=== PATIENT | female | born 1950 | race Caucasian/White ===

== ENCOUNTER → 2021-12-19 13:21 | Outpatient (CLI) | payer MEDICARE, SELFPAY ==
--- NOTE | ~2021-12-19 | MM_ITS ---
EXAMINATION: MM screening chanel BI w jonnie HISTORY: Screening TECHNIQUE: Craniocaudal and mediolateral oblique 3-D tomosynthesis images were obtained and synthetic 2-D images were generated. CAD analysis was submitted and interpreted. COMPARISON: No prior mammogram is available for comparison at this institution. BREAST PARENCHYMAL COMPOSITION: The breasts are almost entirely fatty. FINDINGS: There is no evidence of suspicious mass, calcification, or architectural distortion to sugg est malignancy in either breast. There has been no suspicious interval change. IMPRESSION: 1. No mammographic evidence of malignancy. 2. Recommend routine screening mammography in one year. BI-RADS Category 1: Negative Reviewed, dictated and finalized at location A.
--- NOTE | ~2021-12-19 | DEXA_ITS ---
Bone Density Report Name: TRISHA POLLOCK Age: 71 Sex: Female Ethnicity: White Date of : 1950 Indication: postmenopausal; screening for osteoporosis; height loss; prior fracture; asthma or emphysema; Referring Provider: Brain Vitale Study: Bone densitometry was performed. Exam Date: December 19, 2021 Accession number: [id number] Bone Density: Region BMD T-score Z-score Classification AP Spine (L1-L4) 0.835 -1.9 0.4 Osteopenia Femoral Neck (Left) 0.687 -1.5 0.6 Osteopenia Total Hip (Left) 0.861 -0.7 1.1 Normal Femoral Neck (Right) 0.697 -1.4 0.6 Osteopenia Total Hip (Right) 0.817 -1.0 0.7 Normal Total Hip Mean 0.839 -0.9 0.9 Normal World Health Organization criteria for BMD impression classify patients as: Normal (T-score at or above -1.0), Osteopenia (T-score between -1.0 and -2.5), or Osteoporosis (T-score at or below -2.5). 10-year Fracture Risk(1): Major Osteoporotic Fracture 17% Hip Fracture 2.7% Reported Risk Factors: [place] (), Neck BMD=0.687, BMI=25.9, previous fracture (1) FRAX(R) Version 3.08. Fracture probability calculated for an untreated patient. Fracture probability may be lower if the patient has received treatment. Clinical Information Provided by Patient: Has had a low trauma fracture Has used the following medications: Vitamin D Has the following medical conditions: Asthma or Emphysema Patient maximum height was 64 Menopause Age: 57 Does not regularly consume dairy products Drinks caffeinated beverages Onset of menses at age 11 Number of children 2 Impression: The patient has low bone mass, based on the Total Spine T-score. The patient has an estimated ten-year risk of hip fracture of 2.7% and an estimated ten-year risk of major fracture of 17%, based on the WHO FRAX algorithm. The patient has risk factors, including: previous fracture. Discussion: BONE DENSITY IS LOW AT ONE OR MORE SKELETAL SITES. This patient's lowest T-score is low at one or more skeletal sites. It meets the World Health Organization's (WHO) criteria for ?low bone mass? (T-score between -1.0 and -2.5). The patient's 10-year risk of fracture as calculated by FRAX is less than the threshold where pharmacological therapy is recommended by the National Osteoporosis Foundation (NOF). However, all treatment decisions require clinical judgment and consideration of individual patient factors, including patient preferences, comorbidities, previous drug use, risk factors not captured in the FRAX model (e.g., frailty, falls, vitamin D deficiency, increased bone turnover, interval significant decline in bone density) and possible under or overestimation of fracture risk by FRAX. The patient should follow a healthful lifestyle (good nutrition with adequate calcium and vitamin D, and appropriate weight-ajit
== END ==
PROVIDERS: PCP Family Medicine; Visit Provider Family Medicine
DX: Z12.31 Encounter for screening mammogram for malignant neoplasm of breast (principal); Z78.0 Asymptomatic menopausal state; M85.88 Other specified disorders of bone density and structure, other site; M85.852 Other specified disorders of bone density and structure, left thigh; M85.851 Other specified disorders of bone density and structure, right thigh
CPT/HCPCS: 77063; 77067; 77080

== ENCOUNTER → 2022-07-16 12:03 | Outpatient (CLI) | payer MEDICARE, SELFPAY ==
--- NOTE | ~2022-07-16 | XR_ITS ---
XR chest 2V DATE: 07/16/2022 12:21 INDICATION: Cough, shortness of breath, congestion for one week TECHNIQUE: 2 views COMPARISON: 01/30/2017 CT chest high resolution scan 09/02/2016 2 view chest FINDINGS: Chronic vertically oriented discoid scar, left lower lobe, stable since 08/23/2016. No pulmo nary infiltrate or consolidation, pleural effusion or pulmonary vascular congestion or pneumothorax. Normal heart size. No hilar or mediastinal enlargement. IMPRESSION: No active cardiopulmonary disease; chronic mild discoid scarring, left lower lobe Reviewed, dictated and finalized at location A. IMPRESSION: No active cardiopulmonary disease; chronic mild discoid scarring, l eft lower lobe
== END ==
PROVIDERS: PCP Family Medicine; Visit Provider Family Medicine
DX: R05.9 Cough, unspecified (principal); R06.02 Shortness of breath
CPT/HCPCS: 71046

== ENCOUNTER 2023-01-03 14:46 | Emergency (ER) | payer MEDICARE, SELFPAY ==
[2023-01-03] VITALS (8 sets, daily range): BP systolic 117–160; BP diastolic 56–94; PULSE 78–99; RESP 11–16; TEMP 36.7; O2SAT 97–100
--- NOTE | ~2023-01-03 | XR_ITS ---
Portable chest x-ray Comparison: 07/16/2022 Clinical History: Shortness of breath Findings: Lungs are clear, without focal consolidation or pleural effusion. Cardiomediastinal silho uette is stable. Bones and soft tissues are unremarkable. Impression: Normal chest. Reviewed, dictated and finalized at location . Impression: Normal chest.
--- NOTE | ~2023-01-03 | CT_ITS ---
Non-contrast Head CT History: Headache COMPARISON: 05/17/2016 Technique: Axial non-contrast imaging of the brain was performed. Dose reduction technique was used on this scan by utilizing automated exposure control and iterative reconstruction technique. The dose -length product (DLP) was 605.33 mGy-cm. Findings: There is no evidence of intracranial hemorrhage, mass lesion, or acute infarct. Brain par enchyma appears normal. The ventricles and subarachnoid spaces are normal in size. The calvarium ap pears normal. The visualized paranasal sinuses and mastoid air cells are clear. Impression: No significant abnormality seen. Reviewed, dictated and finalized at location . Impression: No significant abnormality seen.
[2023-01-03 15:11] LABS: Basophils Absolute Auto 0.1 K/mm3 (0.0-0.1); Eosinophils Absolute Auto 0.6 K/mm3 (0-0.3); Eosinophils Percent Auto 6.6 % (0-4.4); Hematocrit 40.9 % (37.0-47.0); Hemoglobin 13.1 g/dL (12.0-15.0); Immature Granulocyte Absolute 0.02 K/mm3 (0.00-0.031); Immature Granulocyte Percent A 0.2 % (0-0.5); Lymphocytes Absolute Auto 2.04 K/mm3 (0.9-3.2); Lymphocytes Percent Auto 23.6 % (18.3-44.2); Mean Corpuscular Hemoglobin 30.4 pg (26-34); Mean Corpuscular Volume 94.9 fl (80-100); Mean Platelet Volume 11.4 fl (7.4-10.4); Monocytes Absolute Auto 0.6 K/mm3 (0.1-0.6); Monocytes Percent Auto 7.2 % (2.6-8.5); Neutrophils Absolute Auto 5.3 K/mm3 (1.3-6.7); Neutrophils Percent Auto 61.4 % (45.5-73.1); Platelet Count Result 321 k/mm3 (150-375); Red Blood Count 4.31 M/mm3 (4.2-5.4); Red Cell Distribution Width 14.3 % (11.5-14.5); White Blood Count 8.6 K/mm3 (4.5-10.0)
[2023-01-03 15:21] LABS: Alanine Aminotransferase 34 U/L (6-35); Albumin Level 4.9 g/dL (3.5-5.1); Alkaline Phosphatase 125 U/L (38-126); Anion Gap 7 mmol/L (8-16); Aspartate Amino Transferase 28 U/L (14-36); Bilirubin,Total 0.5 mg/dL (0.2-1.3); Blood Urea Nitrogen 11 mg/dL (7-17); Calcium 9.6 mg/dL (8.4-10.2); Carbon Dioxide 30 mmol/L (22-30); Chloride 101 mmol/L (98-107); Estimated CRCL calculation 40 ml/min; Estimated Glomerular Filt Rate > 60; Glucose 106 mg/dL (65-110); Potassium 4.2 mmol/L (3.4-5.0); Sodium 138 mmol/L (137-145)
--- NOTE | 2023-01-03 18:14 | ED.GENADULT ---
HPI - General Adult General Chief complaint: Recheck/Abnormal Lab/Rx Stated complaint: elevated BP Time Seen by Provider: 01/03/23 17:15 History of Present Illness HPI narrative: 72-year-old female presented to the emergency department for evaluation of elevated blood pressure. Patient's blood pressure was elevated when she was getting outpatient labs drawn. Patient feels that her blood pressure has been elevated more frequently. Patient states she has had intermittent shortness of breath and headache. Upon arrival to the ED patient states that her blood pressure is improving. Patient denies any associated numbness or weakness with this. Patient denies any chest pain. Related Data Allergies Allergy/AdvReac Type Severity Reaction Status Date / Time kiwi Allergy Intermediate THROAT/MOUTH Verified 01/03/23 17:25 ITCHING & HIVES melon Allergy Intermediate THROAT/MOUTH Verified 01/03/23 17:25 ITCHING & HIVES Penicillins Allergy Unknown Unknown Verified 01/03/23 17:25 red dye Allergy Unknown Unknown Verified 01/03/23 17:25 Sulfa (Sulfonamide Allergy Unknown Unknown Verified 01/03/23 17:25 Antibiotics) Review of Systems Review of Systems: All systems reviewed & are unremarkable except as noted in HPI and below PMFSH Past Medical History Medical History Acquired hypothyroidism Allergic rhinitis Asthma Colon polyps GERD (gastroesophageal reflux disease) HLD (hyperlipidemia) Vitamin D deficiency Family History Family History Father Family history of coronary artery disease Asthma Family history of allergic disorder Family history of osteoarthritis Mother Family history of coronary artery disease Family history of malignant neoplasm Social History Social History Smoking status: Never smoker Second hand tobacco smoke exposure: No Alcohol intake: current Substance use: never Substance use type: does not use Living arrangements: with family Occupation/Education: retired Gender identity (if verbalized by the patient): Female Sexual Orientation (if Verbalized by the Patient): Straight or Heterosexual Exam Narrative: APPEARANCE: Well appearing, no pain, no distress, well-nourished. HEAD: normocephalic, atraumatic. EYES: PERRLA/EOMI, conjunctivae clear. NECK: Supple. No adenopathy, no masses. RESPIRATORY: Airway patent, respirations nonlabored. Clear to auscultation bilaterally, no rales, rhonchi, wheezing. CARDIOVASCULAR: Regular rate and rhythm without murmurs rubs or gallops. ABDOMINAL: Soft, nontender, nondistended, normal bowel sounds MUSCULOSKELETAL: Moves all extremities. Strength/ROM intact, No edema, No calf tenderness. NEURO: Alert. Cranial nerves II through XII intact. Grossly intact SKIN: Warm, dry. Normal Color Course Course Emergency Course: 72 female for evaluation of high blood pressure. Patient's blood pressure was 119/56 without any medical treatment. Patient is afebrile with no leukocytosis. Patient's CMP is within normal limits. Chest x-ray shows no acute cardiopulmonary malady and head CT shows no acute intracranial abnormality. Patient suspects that her increased blood pressure may be secondary to a change in her asthma medications. Patient was advised to have close follow-up with her physician to see if they want to change medication back. Patient was also advised to check her blood pressures twice daily and to keep a record for her primary care physician. Patient and family are comfortable with the plan for discharge and close follow-up. Patient was well-appearing at time of discharge. Vital Signs Vital signs: Vital Signs Temperature 98.1 F 01/03/23 14:49 Pulse Rate 89 01/03/23 14:49 Respiratory Rate 16 01/03/23 14:49 Blood Pressure 150/83 H 01/03/23 14:49 Pulse Oximetry
--- NOTE | 2023-01-03 18:17 | PC.NURSE ---
1801- Pt BP 119/56, Dr. Rodriguez notified, hydralazine held.
[2023-01-03 18:26] LABS: NT Pro B Type Natriuretic Pept 79 pg/mL (19.9-100)
== END 2023-01-03 19:13 | disposition home or self-care (01) ==
PROVIDERS: Emergency Provider Emergency Medicine; PCP Family Medicine
DX: I10 Essential (primary) hypertension (principal); R51.9 Headache, unspecified; E03.9 Hypothyroidism, unspecified; J45.909 Unspecified asthma, uncomplicated; E78.5 Hyperlipidemia, unspecified; R06.02 Shortness of breath
CPT/HCPCS: 36415; 70450; 71045; 80053; 83880; 85025; 99284

== ENCOUNTER 2023-01-28 09:25 | Outpatient (CLI) | payer MEDICARE, SELFPAY ==
--- NOTE | 2023-01-28 09:29 | EST_ITS ---
Patient Info Name: Eve Pink Age: 72 years : 1950 Gender: Female Ht: 63 in Wt: 145 lbs BSA: 1.72 m2 Exam Date: 01/28/2023 9:41 AM Exam Location: [facility] Stress Patient Status: Outpatient Admit Date: 01/28/2023 Staff Ordering Physician: Brain Vitale MD Attending Provider: Brain Vitale MD Exercise Technologist: Sharon Latham RDCS Exercise Physician: Kaleb Rodriguez DO Exam Type: CA stress test treadmill Study Info Indications R06.00 - Dyspnea, unspecified A treadmill exercise stress test was performed. Summary 1. 1. Negative Morris exercise stress test for ischemic ST changes by ECG criteria. 2. 2. Poor functional capacity, achieving 4.7 METs of workload. 3. 3. Baseline hypertension with hypertensive response to exercise. 4. 4. Rapid HR response to exercise. 5. 5. Appropriate HR recovery at 1 minute post exercise. 6. 6. No imaging with stress testing. 7. 7. Patient informed of the above results. Protocol: Morris Stress ECG Details Stage: REST Duration (min): 1 min : 59 sec Speed (mph): 0.0 Grade (%): 0 HR (bpm): 74 SBP (mmHg): 165 DBP (mmHg): 78 METS: --- Stage: REST Duration (min): 10 min : 17 sec Speed (mph): 0.0 Grade (%): 0 HR (bpm): 86 SBP (mmHg): 165 DBP (mmHg): 78 METS: --- Stage: STAGE 1 Duration (min): 1 min : 0 sec Speed (mph): 1.7 Grade (%): 10 HR (bpm): 117 SBP (mmHg): 165 DBP (mmHg): 78 METS: --- Stage: STAGE 1 Duration (min): 2 min : 0 sec Speed (mph): 1.7 Grade (%): 10 HR (bpm): 130 SBP (mmHg): 165 DBP (mmHg): 78 METS: --- Stage: STAGE 1 Duration (min): 3 min : 0 sec Speed (mph): 1.7 Grade (%): 10 HR (bpm): 134 SBP (mmHg): 233 DBP (mmHg): 89 METS: --- Stage: RECOVERY Duration (min): 0 min : 59 sec Speed (mph): 0.0 Grade (%): 0 HR (bpm): 116 SBP (mmHg): 214 DBP (mmHg): 86 METS: --- Stage: RECOVERY Duration (min): 1 min : 59 sec Speed (mph): 0.0 Grade (%): 0 HR (bpm): 100 SBP (mmHg): 214 DBP (mmHg): 86 METS: --- Stage: RECOVERY Duration (min): 2 min : 59 sec Speed (mph): 0.0 Grade (%): 0 HR (bpm): 94 SBP (mmHg): 176 DBP (mmHg): 73 METS: --- Stage: RECOVERY Duration (min): 3 min : 59 sec Speed (mph): 0.0 Grade (%): 0 HR (bpm): 91 SBP (mmHg): 176 DBP (mmHg): 73 METS: --- Stage: RECOVERY Duration (min): 4 min : 59 sec Speed (mph): 0.0 Grade (%): 0 HR (bpm): 80 SBP (mmHg): 148 DBP (mmHg): 76 METS: --- Stage: RECOVERY Duration (min): 5 min : 59 sec Speed (mph): 0.0 Grade (%): 0 HR (bpm): 80 SBP (mmHg): 148 DBP (mmHg): 76 METS: --- Stage: RECOVERY Duration (min): 6 min : 58 sec Speed (mph): 0.0 Grade (%): 0 HR (bpm): 78 SBP (mmHg): 136 DBP (mmHg): 76 METS: --- Rest HR: 86 bpm Peak HR: 135 bpm Rest Sys BP: 165 mmHg Peak Sys BP: 233 mmHg Max Pred HR: 146 bpm % Max Pred HR: 92 % Target HR: 124 bpm Max RPP: 31,455 bpm*mmHg
== END 2023-01-28 09:26 | disposition home or self-care (01) ==
LOC: ANHCARD 09:26
PROVIDERS: PCP Family Medicine; Visit Provider Family Medicine
DX: R06.00 Dyspnea, unspecified (principal); R55 Syncope and collapse; I10 Essential (primary) hypertension
CPT/HCPCS: 93017

== ENCOUNTER 2023-11-04 12:15 | Outpatient (CLI) | payer MEDICARE, SELFPAY ==
[2023-11-04 13:29] LABS: Influenza A QL RT-PCR Negative (Negative); Influenza B QL RT-PCR Negative (Negative); RSV RNA, RT-PCR Negative (Negative); SARS-CoV-2 RNA PCR Negative (Negative)
== END 2023-11-04 12:16 | disposition home or self-care (01) ==
LOC: ANHLAB 12:18
PROVIDERS: PCP Family Medicine; Visit Provider Physician Assistant
DX: R50.9 Fever, unspecified (principal); Z20.822 Contact with and (suspected) exposure to COVID-19
CPT/HCPCS: 87637

== ENCOUNTER 2023-11-07 16:30 | Emergency (ER) | payer MEDICARE, SELFPAY ==
[2023-11-07 16:39] VITALS: BP 133/79; PULSE 85; RESP 18; TEMP 36.4; O2SAT 100
--- NOTE | 2023-11-07 17:03 | ED.URI ---
HPI - URI/Sore Throat General Chief Complaint: Upper Respiratory Infection Stated Complaint: Chest Congestion Time Seen by Provider: 11/07/23 17:03 Source: patient, RN notes reviewed and old records reviewed Mode of arrival: ambulatory Limitations: no limitations History of Present Illness HPI Narrative: 73-year-old female presents to [facility] from home for complaint of chest congestion S2 days. Patient reports that 1 week ago she developed a sore throat. She called her doctor on Friday. Her PCP sent her to [facility] for labs. verses that she tested negative for RSV, influenza, and COVID. Patient then saw her manager plant on Friday and was placed on a Medrol Dosepak. Patient reports that chest question had her concerned that something else may be going on and wanted to have her lungs auscultated. patient endorses an allergy to sulfa and penicillins. Patient able tolerate fluids by mouth. Patient denies chest pain, shortness of breath, headache, fever, myalgias, or any other complaints at this time. Related Data Allergies Allergy/AdvReac Type Severity Reaction Status Date / Time kiwi Allergy Intermediate THROAT/MOUTH Verified 05/28/23 10:24 ITCHING & HIVES melon Allergy Intermediate THROAT/MOUTH Verified 05/28/23 10:24 ITCHING & HIVES Penicillins Allergy Mild Flushing Verified 05/28/23 10:24 red dye Allergy Unknown Unknown Verified 05/28/23 10:24 Sulfa (Sulfonamide Allergy Unknown Unknown Verified 05/28/23 10:24 Antibiotics) Review of Systems Review of Systems: All systems reviewed & are unremarkable except as noted in HPI and below Constitutional: Constitutional: Reports no additional constitutional complaints Eyes: Eyes: Reports no additional eye complaints ENT: Reports system reviewed and no additional complaints, except as documented Cardiovascular: Cardiovascular: Reports no additional cardiovascular complaints, Denies chest pain and Denies dyspnea Respiratory: Respiratory: Reports no additional respiratory complaints, Reports chest congestion, Denies cough and Denies dyspnea Musculoskeletal: Musculoskeletal: Reports no additional musculoskeletal complaints Neurologic: Reports system reviewed and no additional complaints, except as documented Psychiatric: Psychiatric: Reports no additional psychiatric complaints PMFSH Past Medical History Medical History Acquired hypothyroidism Allergic rhinitis Asthma Colon polyps GERD (gastroesophageal reflux disease) HLD (hyperlipidemia) Vitamin D deficiency Family History Family History Father Family history of coronary artery disease Asthma Family history of allergic disorder Family history of osteoarthritis Mother Family history of coronary artery disease Family history of malignant neoplasm Social History Social History Smoking status: Never smoker Second hand tobacco smoke exposure: No Alcohol intake: current Substance use: never Substance use type: does not use Living arrangements: with family Occupation/Education: retired Gender identity (if verbalized by the patient): Female Sexual Orientation (if Verbalized by the Patient): Straight or Heterosexual Comments At the time of my signature, I reviewed and agree with the nursing past medical, surgical, social, and family history. There is no relevant family history pertinent to the patient complaint. Exam Const: General: cooperative, healthy appearing, comfortable, no acute distress, alert and well nourished Nutritional Appearance: well nourished Orientation/consciousness: patient oriented x3 Limitations: no limitations HENMT: Head: normal to inspection Ears: external ears normal Face/Nose/Sinus: Normal external nose present, Normal nares present, normal facial exam, No erythema a
== END 2023-11-07 17:08 | disposition home or self-care (01) ==
PROVIDERS: Emergency Provider Nurse Practitioner Family; PCP Family Medicine
DX: J06.9 Acute upper respiratory infection, unspecified (principal); E03.9 Hypothyroidism, unspecified; J45.909 Unspecified asthma, uncomplicated; K21.9 Gastro-esophageal reflux disease without esophagitis; E78.5 Hyperlipidemia, unspecified
CPT/HCPCS: 99211; G0463

== ENCOUNTER 2024-02-17 16:28 | Emergency (ER) | payer MEDICARE, SELFPAY ==
--- NOTE | ~2024-02-17 | XR_ITS ---
EXAM: XR shoulder LT min 2V DATE: 02/17/2024 17:15 HISTORY: pain to shoulder and to upper arm . COMPARISON: None available. FINDINGS: Decreased mineralization. No fracture or dislocation. No lytic or blastic lesion. 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 No erosion or periosteal change. Soft tissues within nor mal limits. IMPRESSION: No acute osseous finding in the left shoulder. Reviewed, dictated and finalized at location K.
[2024-02-17 16:40] VITALS: BP 143/63; PULSE 74; RESP 16; TEMP 36.8; O2SAT 100
--- NOTE | 2024-02-17 16:46 | ED.EXTPRO ---
HPI - Extremity Problem General Chief complaint: Extremity Problem,Nontraumatic Stated complaint: Left Shoulder/Arm Pain Time Seen by Provider: 02/17/24 16:50 Source: patient, RN notes reviewed and old records reviewed Mode of arrival: ambulatory Limitations: no limitations History of Present Illness HPI Narrative: 73 year old female with complaints of left shoulder pain for with increase for the past 2 weeks. patient reports that she has been having some discomfort to her left shoulder for about a month with no known injury. Patient reports that pain is at the AC joint and to the achy to upper arm with some occasional tingling to her fingers of her left hand.Patient reports that she has been using her lap top to do some writing. She reports also that she has neen doing blood pressures on her left upper arm lately too which could be aggravating her biceps pain. Patient has been taking Ibuprofen for her discomfort. MD Complaint: other (left shoulder pain) Onset (ago): week(s) (increased symptoms 2 weeks) Pain Consistency: intermittent Severity scale (1-10): 4 Quality: aching Related Data Allergies Allergy/AdvReac Type Severity Reaction Status Date / Time kiwi Allergy Intermediate THROAT/MOUTH Verified 01/22/24 14:07 ITCHING & HIVES melon Allergy Intermediate THROAT/MOUTH Verified 01/22/24 14:07 ITCHING & HIVES Penicillins Allergy Mild Flushing Verified 01/22/24 14:07 red dye Allergy Unknown Unknown Verified 01/22/24 14:07 Sulfa (Sulfonamide Allergy Unknown Unknown Verified 01/22/24 14:07 Antibiotics) Review of Systems Review of Systems: CONSTITUTIONAL: Denies fever, chills, or sweats. EYES: Denies visual changes, redness, or discharge. ENT: Denies rhinorrhea, congestion, sore throat, or otalgia. CARDIOVASCULAR: Denies chest pain, palpitations, or edema. RESPIRATORY: Denies cough or dyspnea. GASTROINTESTINAL: Denies abdominal pain, nausea, vomiting, or diarrhea. GENITOURINARY: Denies dysuria or hematuria. SKIN: Denies rash or itching. MUSCULOSKELETAL: Denies back pain, positive for left shoulder pain , or myalgia. NEUROLOGIC: Denies headache, numbness, or weakness. PSYCHIATRIC: Denies anxiety or depression. All systems reviewed & are unremarkable except as noted in HPI and below PMFSH Past Medical History Medical History Acquired hypothyroidism Allergic rhinitis Asthma Colon polyps GERD (gastroesophageal reflux disease) HLD (hyperlipidemia) Vitamin D deficiency Family History Family History Father Family history of coronary artery disease Asthma Family history of allergic disorder Family history of osteoarthritis Mother Family history of coronary artery disease Family history of malignant neoplasm Social History Social History Smoking status: Never smoker Second hand tobacco smoke exposure: No Alcohol intake: current Substance use: never Substance use type: does not use Living arrangements: with family Occupation/Education: retired Gender identity (if verbalized by the patient): Female Sexual Orientation (if Verbalized by the Patient): Straight or Heterosexual Comments At time of signature, agree with nursing past medical, surgical, social and family history. There is no relevant family history pertinent to the presenting complaint Exam Narrative: GENERAL: Well-appearing, well-nourished, and in no acute distress. HEAD: Normocephalic, atraumatic. EYES: PERRLA and EOMI. ENT: Nares clear, no rhinorrhea or epistaxis. Mucous membranes moist. NECK: Supple.no lymphadenopathy CHEST: Clear to auscultation. No respiratory distress. HEART: Regular rate and rhythm. No murmur heard. Normal peripheral pulses. ABDOMEN: Soft, nontender, nondistended, normal active bowel sounds. EXTREMITIES: Normal range of motio
== END 2024-02-17 17:55 | disposition home or self-care (01) ==
PROVIDERS: Emergency Provider Registered Nurse; PCP Family Medicine
DX: M25.512 Pain in left shoulder (principal); E03.9 Hypothyroidism, unspecified; J45.909 Unspecified asthma, uncomplicated; K21.9 Gastro-esophageal reflux disease without esophagitis; E78.5 Hyperlipidemia, unspecified
CPT/HCPCS: 73030; 99213; G0463

== ENCOUNTER 2024-12-06 00:28 | Emergency (ER) | payer MEDICARE, SELFPAY ==
[2024-12-06 00:30] VITALS: BP 153/67; PULSE 81; RESP 15; TEMP 36.6; O2SAT 100
--- OUTSIDE RECORDS SUMMARY | 2024-12-06 00:31 | XMS_ITS | Clinical Summary ---
Author Organization [facility] Address [address] [place] [address] Care Team Providers Care Network Mgr Name Role Phone Brain Vitale MD Primary Care Provider [phone] Source Comments [facility],non-owned Affiliates and Associated Physician Practices is amultiple site organization consisting of ambulatory clinics and hospital sitesin [place], [place], [place] and [place]. This disclosure is being madepursuant to the Care Everywhere program and may not contain all information available regarding this patient. Last updated 18.[facility] [employer] Allergies Active Allergy Reactions Criticality Noted Date Comments Kiwi Extract 10/21/2016 Penicillins 10/21/2016 Red Dye 10/21/2016 Sulfa Drugs 10/21/2016 Citrullus Vulgaris 10/21/2016 Immunizations Name Administration Dates Next Due INFLUENZA VACCINE, HIGH-DOSE , QUADR. (FLUZONE HIGH-DOSE QUADRIVALENT; 65Y+), 0.7 ML (HD-IIV4) 10/21/2016 Social History Tobacco Use Types Packs/Day Years Used Date Smoking Tobacco: Never Assessed Sex and Gender Information Value Date Recorded Sex Assigned at Not on file Gender Identity Not on file Sexual Orientation Not on file Plan of Treatment Health Maintenance Due Date Last Done Comments BONE DENSITY TESTING 1950 MEDICARE AWV 12 MONTHS 1950 HEPATITIS C SCREENING 03/06/1966 DTAP/TDAP/TD VACCINES (1 - Tdap) 1967 PNEUMOCOCCAL VACCINE 50+ (1 of 1 - PCV) 1998 ZOSTER VACCINE (1 of 2) 1998 Respiratory Syncytial Virus (RSV) Vaccine Pt: or over 60 yrs (1 - 1-dose 75+ series) 2023 COVID-19 VACCINE ( - 2023-2 5 season) 2024 INFLUENZA VACCINE (#1) 2024 10/21/2016 DEPRESSION SCREENING 09/15/2024 HEPATITIS B VACCINE Aged Out No longe r eligible based on patient's age to complete this topic HIB VACCINE Aged Out No longer eligi ble based on patient's age to complete this topic HPV VACCINE Aged Out No longer eligi ble based on patient's age to complete this topic MENINGOCOCCAL (Group B) VACC INE SHARED DECISION-MAKING Aged Out No longer eligibl e based on patient's age to complete this topic MENINGOCOCCAL GROUPS A/C/Y/W VACCINE Aged Out No longer eligible b ased on patient's age to complete this topic Care Teams Network Mgr Relationship Specialty Start Date End Date Brain Vitale MD [address] [place] [address] PCP - General Family Medicine 10/21/16
--- OUTSIDE RECORDS SUMMARY | 2024-12-06 00:31 | XMS_ITS | Clinical Summary ---
Author Organization [facility] Address [address] Attn: Epic Prelude ADT [place] [id number] Care Team Providers Care Citizenship Instructor Name Role Phone Provider, Alexandra External Primary Care Provider Un available Social History Tobacco Use Types Packs/Day Years Used Date Smoking Tobacco: Never Alcohol Use Standard Drinks/Week Comments Yes 0 (1 standard drink = 0.6 oz pur e alcohol) Comments Unknown Sex and Gender Information Value Date Recorded Sex Assigned at Not on file Legal Sex Female 5:45 AM BAKER Gender Identity Not on file Sexual Orientation Not on file Last Filed Vital Signs Vital Sign Reading Time Taken Comments Blood Pressure 152/81 04/27/2016 1:31 AM CDT Pulse - - Temperature 36.7 C (98 F) 04/27/2016 1:40 AM CDT Respiratory Rate 18 04/27/2016 1:31 AM CDT Oxygen Saturation - - Inhaled Oxygen Concentration - - Weight 63.5 kg (140 lb) 04/26/2016 5:51 PM CDT Height 160 cm (5' 3 ) 04/26/2016 5:51 PM CDT Body Mass Index 24.8 04/26/2016 5:51 PM CDT Plan of Treatment Health Maintenance Due Date Last Done Comments DTAP/TDAP/TD VACCINES (1 - Tdap) 1967 PNEUMOCOCCAL VACCINE 50+ YEARS (1 of 1 - PCV) 03/10/19 98 ZOSTER VACCINE (1 of 2) 1998 OSTEOPOROSIS SCREENING 2013 RSV VACCINE (60+ or ) (1 - 1-dose 75+ series) 2023 INFLUENZA VACCINE (#1) 2024 Care Teams Citizenship Instructor Relationship Specialty Start Date End Date Provider, Alexandra Hitchcock PCP - General 04/25/14
--- OUTSIDE RECORDS SUMMARY | 2024-12-06 00:31 | XMS_ITS | Clinical Summary ---
Author Organization [facility] no Address [address] [place] [address] Phone Care Team Providers Care Manager Costing Name Role Phone Provider, Alexandra External Primary Care Provider Un available Allergies Active Allergy Reactions Criticality Noted Date Comments Penicillins Hives High 04/25/2014 Red Dye Anaphylaxis High 04/25/2014 Sulfa (Sulfonamide Antibiotics) Hives High 04/15 Medications aspirin (ECOTRIN EC) 81 mg Tablet, Delayed Release (E.C.) Take 81 mg by mouth daily. Active atenolol (TENORMIN) 25 mg tablet Take 12.5 mg by mouth daily. Active fluticasone (FLONASE) 50 mcg/spray [place], Suspension Administer 2 Sprays in each nostril daily. Active mometasone-form oterol (DULERA) 200-5 mcg/actuation inhaler Take 2 Puffs by inhalation 2 times daily. 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 Active atorvastatin (LIPITOR) 10 mg tablet Take 10 mg by mouth Daily LATE. Active FEXOFENADINE HCL (LUZMA ORAL) Take by mouth. Activ e albuterol 90 mcg/Actuation HFA inhaler Take 2 Puffs by inhalation every 6 hours as needed for Shortness of Breath. Active Family History Medical History Relation Name Comments Heart Disease Mother Relation Name Status Comments Mother Social History Tobacco Use Types Packs/Day Years Used Date Smoking Tobacco: Never Alcohol Use Standard Drinks/Week Comments No 0 (1 standard drink = 0.6 oz pur e alcohol) Comments No Sex and Gender Information Value Date Recorded Sex Assigned at Not on file Legal Sex Female 4:54 PM CDT Gender Identity Not on file Sexual Orientation Not on file Last Filed Vital Signs Vital Sign Reading Time Taken Comments Blood Pressure 119/51 04/25/2014 7:15 PM CDT Pulse - - Temperature 36.8 C (98.2 F) 04/25/2014 5:12 PM CDT Respiratory Rate 16 04/25/2014 5:12 PM CDT Oxygen Saturation 96% 04/25/2014 7:15 PM CDT Inhaled Oxygen Concentration - - Weight 64.4 kg (142 lb) 04/25/2014 5:12 PM CDT Height 161.3 cm (5' 3.5 ) 04/25/2014 5:12 PM CDT Body Mass Index 24.76 04/25/2014 5:12 PM CDT Plan of Treatment Health Maintenance Due Date Last Done Comments DTAP/TDAP/TD VACCINES (1 - Tdap) 1969 PNEUMOCOCCAL VACCINE 50+ YEARS (1 of 1 - PCV) 03/10/19 98 ZOSTER VACCINE (1 of 2) 1998 OSTEOPOROSIS SCREENING 2013 RSV VACCINE (60+ or ) (1 - 1-dose 75+ series) 2023 INFLUENZA VACCINE (#1) 2024 Insurance MEDICARE PART A AND B [facility] Care Teams Manager Costing Relationship Specialty Start Date End Date ProviderAlexandra PCP - General 04/25/14
--- OUTSIDE RECORDS SUMMARY | 2024-12-06 00:31 | XMS_ITS | Clinical Summary ---
Author Organization [facility] Address [address] [place] [address] Care Team Providers Care International Representative Name Role Phone Unavailable Primary Care Provider Unavailabl e Social History Tobacco Use Types Packs/Day Years Used Date Smoking Tobacco: Never Assessed Comments Unknown Sex and Gender Information Value Date Recorded Sex Assigned at Not on file Legal Sex Female 6:51 PM CDT Gender Identity Not on file Sexual Orientation Not on file Plan of Treatment Health Maintenance Due Date Last Done Comments Hepatitis C 1966 DTaP, Tdap and Td Vaccines ( 1 - Tdap) 1967 Zoster Vaccines (1 of 2) 1998 Dexa Scan (General) 2013 Pneumococcal Vaccine: 65+ Ye ars (1 of 1 - PCV) 2013 RSV Immunization or 60+ Years (1 - 1-dose 75+ series) 2023 COVID-19 Vaccine ( - 2023-2 5 season) 2024 Influenza Adult (#1) 2024 Meningococcal B Vaccine Aged Out No l onger eligible based on patient's age to complete this topic Meningococcal Vaccine Aged Out No dimitris mauricio eligible based on patient's age to complete this topic RSV Immunizations Under 20 Months Aged Out No longer eligible based on patient's age to complete this topic
--- OUTSIDE RECORDS SUMMARY | 2024-12-06 02:48 | XMS_ITS | Clinical Summary ---
Author Organization [facility] no Address [address] [address] Phone Care Team Providers Care Professor Of German Name Role Phone Provider, Alexandra External Primary [...] mouth daily. Active fluticasone (FLONASE) 50 mcg/spray [place], Suspension Administer 2 Sprays in each nostril daily. Active mometasone-form oterol (DULERA) 200-5 mcg/actuation inhaler Take 2 Puffs by inhalation 2 times daily. 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 Active atorvastatin (LIPITOR) 10 mg tablet Take [...] 2024 Insurance MEDICARE PART A AND B [facility] Care Teams Professor Of German Relationship Specialty Start Date End Date ProviderAlexandra PCP - General 04/25/14
--- OUTSIDE RECORDS SUMMARY | 2024-12-06 02:48 | XMS_ITS | Clinical Summary ---
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
--- OUTSIDE RECORDS SUMMARY | 2024-12-06 02:48 | XMS_ITS | Clinical Summary ---
Author Organization [facility] Address [address] [place] [address] Care Team Providers Care Pole Cutter Name Role Phone Unavailable Primary Care Provider [...]
--- OUTSIDE RECORDS SUMMARY | 2024-12-06 02:48 | XMS_ITS | Clinical Summary ---
Author Organization [facility] Address [address] [place] [address] Care Team Providers Care Angle Shearer Name Role Phone Brain Vitale MD Primary Care Provider [phone] Source Comments [facility],non-owned Affiliates and Associated Physician Practices is amultiple site organization consisting of ambulatory clinics and hospital sitesin [place], [place], [place] and [place]. This disclosure is being madepursuant to the Care Everywhere program and may not contain all information available regarding this patient. Last updated 18.[facility] [employer] Allergies Active Allergy Reactions Criticality Noted Date [...] age to complete this topic Care Teams Angle Shearer Relationship Specialty Start Date End Date Brain Vitale MD [address] [place] [address] PCP - General Family Medicine 10/21/16
[2024-12-06 03:06] VITALS: BP 123/57; PULSE 75; RESP 18; O2SAT 97
--- NOTE | 2024-12-06 03:13 | ED_ITS ---
HPI - Nausea/Vomiting/Diarrhea General Chief complaint: Nausea/Vomiting/Diarrhea Stated complaint: N/V Time Seen by Provider: 12/06/24 02:40 Source: patient and family Mode of arrival: ambulatory Limitations: no limitations History of Present Illness HPI Narrative: Patient presents with nausea and vomiting. She was trying to do her bowel prep for a colonoscopy scheduled for 12/06/24 at 9am with building guard deputy sheriff Dr Tate (meant to arrive at 7:30). Her ERICA of solid food was at 9am and then she switched to liquids as indicated. She took 4 Ducolax and has been drinking bottled tea with surgar, apple juice, etc. When she went to start the Miralax in [facility], she swallowed the first half recommended but began vomiting and could not continue. She got 4 mg Zofran IVP by EMS and is feeling better now. No fevers or chills but feels tremulous. Has had an issue with doing the bowel prep before. General low abdominal pain. Has started to have loose stools but not running clear. She denies dysuria or hematuria but has urianry frequency and urgency as well as feelign like she needs to use the bathroom again as soon as she is done.. Related Data Home Medications ?Medication ?Instructions ?Recorded ?Confirmed ?Last Taken ?Type aspirin 81 mg capsule 81 mg PO DAILY 11/25/24 11/25/24 11/25/24 History budesonide-formoterol HFA 160 2 puff inhalation Q12H 11/25/24 11/25/24 11/25/24 History mcg-4.5 mcg/actuation aerosol inhaler (Symbicort) Allergies Allergy/AdvReac Type Severity Reaction Status Date / Time kiwi Allergy Intermediate THROAT/MOUTH Verified 12/06/24 00:30 ITCHING & HIVES melon Allergy Intermediate THROAT/MOUTH Verified 12/06/24 00:30 ITCHING & HIVES red dye Allergy Intermediate Hives Verified 12/06/24 00:30 banana Allergy Mild Other Verified 12/06/24 00:30 Penicillins Allergy Mild Flushing Verified 12/06/24 00:30 Sulfa (Sulfonamide Allergy Mild flushing Verified 12/06/24 00:30 Antibiotics) PMFSH Past Medical History Medical History Colon polyps GERD (gastroesophageal reflux disease) Vitamin D deficiency Allergic rhinitis Asthma HLD (hyperlipidemia) Acquired hypothyroidism Family History Family History Father Family history of coronary artery disease Asthma Family history of allergic disorder Family history of osteoarthritis Mother Family history of coronary artery disease Family history of malignant neoplasm Social History Social History Smoking status: Never smoker Second hand tobacco smoke exposure: No Alcohol intake: current Drinks per week: 0 Alcohol use details: one a month Substance use: never Substance use type: does not use Living arrangements: alone Occupation/Education: retired Gender identity (if verbalized by the patient): Female Sexual Orientation (if Verbalized by the Patient): Straight or Heterosexual Spiritual care concerns: No Exam 2 Narrative: GENERAL: Well-appearing, well-nourished, and in no acute distress. HEAD: Normocephalic, atraumatic. EYES: Non injected, non icteric ENT: Nares clear, no rhinorrhea or epistaxis. NECK: Supple. CHEST: Speaking in full sentences. No respiratory distress. HEART: Regular rate and rhythm. . ABDOMEN: Soft, nondistended. Mild suprapubic tenderness to palpation. No rigidity/guarding. not peritoneal. EXTREMITIES: Normal range of motion. No lower extremity edema. SKIN: Warm, dry, no rash. NEURO: No focal deficits. Alert and oriented x3. PSYCH: Normal mood and affect. Course Vital Signs Vital signs: Vital Signs Temperature 98 F 12/06/24 00:30 Pulse Rate 81 12/06/24 00:30 Respiratory Rate 15 12/06/24 00:30 Blood Pressure 153/67 H 12/06/24 00:30 Pulse Oximetry 100 12/06/24 00:30 Oxygen Delivery Room Air 12/06/24 00:30 Temperature 98 F 12/06/24 00:30 Pulse Rate 75 12/06/24 03:06 Respiratory Rate 18 12/06/24 03:06 Blood Pressure 123/57 L 12/06/24 03:06 Pulse Oximetry 97 12/06/24 03:06 Oxygen Delivery Room Air 12/06/24 00:30 MDM - Nausea/Vomiting/Diarrhea MDM Narrative Medical decision making narrative: Patient presents with nausea and vomiting after trying to do bowel prep for a colonoscopy scheduled for 12/06/24. In the emergency department she is afebrile with vital signs notable for hypertension. Feeling better after receiving Zofran en route by EMS. Very Mild leukocytosis. Patient with only 6-10 white blood cells and 1+ leukocyte esterase. No bacteria. She does describe some urinary symptoms with urgency, frequency, and feeling of incomplete voiding. For this reason, and given mild suprapubic tenderness on palpation will treat for urinary tract infection. Allergic to sulfa and penicillins. Given first dose in ED with rest of course prescribed. She has successfully p.o. challenge. Stable for discharge. Also given Rx for Zofran ODT. Patient will call Dr Tate's office in the morning to cancel her colonoscopy and reschedule. Differential Diagnosis Differential diagnosis: Likely food poisoning, gastroenteritis, drug-induced nausea and vomiting, dehydration and other (electrolyte abnormaltieis) Lab Data Attestation: I reviewed the patient's lab results. Lab results narrative: No marked electrolyte abnormalities. Normal renal function. 12/06/24 03:30 12/06/24 03:30 Labs: Lab Results 12/06/24 Range/Units 03:30 WBC 10.3 H (4.5-10.0) K/mm3 RBC 4.03 L (4.2-5.4) M/mm3 Hgb 12.0 (12.0-15.0) g/dL Hct 37.0 (37.0-47.0) % MCV 91.8 (80-100) fl MCH 29.8 (26-34) pg MCHC 32.4 (32-36) g/dl RDW 13.9 (11.5-14.5) % Plt Count 288 (150-375) k/mm3 MPV 11.5 H (7.4-10.4) fl Immature Gran % (Auto) 0.3 (0-0.5) % Neut % (Auto) 77.7 H (45.5-73.1) % Lymph % (Auto) 15.6 L (18.3-44.2) % Chaves % (Auto) 5.0 (2.6-8.5) % Eos % (Auto) 0.9 (0-4.4) % Baso % (Auto) 0.5 (0.2-1.2) % Lymph # (Auto) 1.61 (0.9-3.2) K/mm3 Chaves # (Auto) 0.5 (0.1-0.6) K/mm3 Eos # (Auto) 0.1 (0-0.3) K/mm3 Baso # (Auto) 0.1 (0.0-0.1) K/mm3 Abs Immat Gran (auto) 0.03 (0.00-0.031) K/mm3 Absolute Neuts (auto) 8.0 H (1.3-6.7) K/mm3 Absolute Nucleated RBC 0.000 (0.0-0.012) K/mm3 Nucleated RBC % 0.0 (0.0-0.2) % Sodium 139 (137-145) mmol/L Potassium 4.3 (3.4-5.0) mmol/L Chloride 102 (98-107) mmol/L Carbon Dioxide 25 (22-30) mmol/L Anion Gap 12 (4-12) mmol/L BUN 12 (7-17) mg/dL Creatinine 0.88 (0.7-1.0) mg/dL Estim Creat Clear Calc 39 ml/min Estimated GFR > 60 (59 - ) Glucose 122 H (65-110) mg/dL Calcium 9.5 (8.4-10.2) mg/dL Magnesium 1.9 (1.6-2.3) mg/dL Total Bilirubin 0.8 (0.2-1.3) mg/dL AST 24 (14-36) U/L ALT 22 (6-35) U/L Alkaline Phosphatase 99 (38-126) U/L Total Protein 7.0 (6.3-8.2) g/dL Albumin 4.4 (3.5-5.1) g/dL Urine Color Yellow (Yellow) Urine Appearance Clear (Clear) Urine pH 6.0 (5.0-9.0) Ur Specific Mead 1.006 (1.001-1.035) Urine Protein Negative (Negative) mg/dL Urine Glucose (UA) Negative (Negative) mg/dL Urine Ketones Negative (Negative) mg/dL Ur Blood (Man) Negative (Negative) Urine Nitrate Negative (Negative) Urine Bilirubin Negative (Negative) Urine Urobilinogen 0.2 (<2.0) mg/dL Leukocyte Esterase Rfl 1+ H (Negative) GLENN/UL Urine RBC 0-2 (0-2) /hpf Urine WBC 6-10 H (0-3) /hpf Ur Squamous Epith Cells None seen (Few) /hpf Urine Bacteria None seen /hpf Urine Casts 0-2 Discharge Plan Discharge Clinical Impression: Abnormal urinalysis, Drug-induced nausea and vomiting Patient Disposition: Home, Self-Care Condition: Stable Instructions: Antibiotic Form, Acute Nausea and Vomiting (DC), Urinary Tract Infection in Older Adults (ED) Additional Instructions: If you continue to have nausea and vomiting you can use the oral disintegrating tablets of Zofran. Your urinalysis showed possible evidence of a urinary tract infection and given you were having some symptoms (urgency, frequency, feeling of incomplete voiding), reasonable to treat. You received your 1st dose of antibiotic in the emergency department with the rest of the course prescribed. Call your gastroenterology office to cancel and reschedule your colonoscopy and discuss alternative prep strategies. Patient Language: Greek Prescriptions: New ondansetron 4 mg tablet,disintegrating 4 mg PO Q8H PRN (Reason: nausea and vomiting) Qty: 7 0RF nitrofurantoin monohyd/m-cryst [Macrobid] 100 mg capsule 100 mg PO Q12H 3 Days Qty: 6 0RF Rx Instructions: must administer with a meal/food No Action famotidine 40 mg tablet 40 mg PO DAILY Qty: 90 2RF levothyroxine 50 mcg tablet 50 mcg PO DAILY Qty: 90 2RF montelukast [Singulair] 10 mg tablet 10 mg PO DAILY Qty: 90 1RF atorvastatin 10 mg tablet 10 mg PO DAILY Qty: 90 3RF budesonide-formoterol [Symbicort] 160-4.5 mcg/actuation HFA aerosol inhaler 2 puff INHALATION Q12H aspirin 81 mg capsule 81 mg PO DAILY Follow-up/Referrals: Brain Vitale MD [Primary Care Provider] - Ruben Tate MD [Physician] - Time of Disposition: 04:12
[2024-12-06] MEDS: ACETAMINOPHEN 500 MG TABLET 1000 MG PO (03:26)
[2024-12-06 03:36] LABS: Basophils Absolute Auto 0.1 K/mm3 (0.0-0.1); Basophils Percent Auto 0.5 % (0.2-1.2); Eosinophils Absolute Auto 0.1 K/mm3 (0-0.3); Eosinophils Percent Auto 0.9 % (0-4.4); Immature Granulocyte Absolute 0.03 K/mm3 (0.00-0.031); Immature Granulocyte Percent A 0.3 % (0-0.5); Lymphocytes Absolute Auto 1.61 K/mm3 (0.9-3.2); Lymphocytes Percent Auto 15.6 % (18.3-44.2); Mean Corpuscular HGB Conc 32.4 g/dl (32-36); Mean Corpuscular Hemoglobin 29.8 pg (26-34); Mean Corpuscular Volume 91.8 fl (80-100); Mean Platelet Volume 11.5 fl (7.4-10.4); Monocytes Absolute Auto 0.5 K/mm3 (0.1-0.6); Neutrophils Percent Auto 77.7 % (45.5-73.1); Platelet Count Result 288 k/mm3 (150-375); Red Blood Count 4.03 M/mm3 (4.2-5.4); Red Cell Distribution Width 13.9 % (11.5-14.5); White Blood Count 10.3 K/mm3 (4.5-10.0)
[2024-12-06 03:42] LABS: Add Urine Microscopic? YES; Appearance Urine Clear (Clear); Bacteria Urine None Seen /hpf; Bilirubin Urine Negative (Negative); Blood Urine Negative (Negative); Color Urine Yellow (Yellow); Glucose Urine UA Negative (Negative); Ketones Urine Negative (Negative); Leukocyte Esterase Ur 1+ LEU/UL (Negative); Nitrate Urine Negative (Negative); Non Pathogenic Casts 0-2; Protein Urine Negative (Negative); RBC Urine 0-2 /hpf (0-2); Specific Grav Ur 1.006 (1.001-1.035); Squamous Epithelial Cell Urine None Seen /hpf (Few); Urobilinogen Urine 0.2 mg/dL (<2.0)
[2024-12-06 03:47] LABS: Alanine Aminotransferase 22 U/L (6-35); Albumin Level 4.4 g/dL (3.5-5.1); Alkaline Phosphatase 99 U/L (38-126); Anion Gap 12 mmol/L (4-12); Aspartate Amino Transferase 24 U/L (14-36); Bilirubin,Total 0.8 mg/dL (0.2-1.3); Blood Urea Nitrogen 12 mg/dL (7-17); Calcium 9.5 mg/dL (8.4-10.2); Carbon Dioxide 25 mmol/L (22-30); Chloride 102 mmol/L (98-107); Estimated CRCL calculation 39 ml/min; Estimated Glomerular Filt Rate > 60; Glucose 122 mg/dL (65-110); Magnesium 1.9 mg/dL (1.6-2.3); Potassium 4.3 mmol/L (3.4-5.0); Sodium 139 mmol/L (137-145)
[2024-12-06] MEDS: NITROFURANTOIN MONOHYD MACROCR 100 MG CAP PO (04:20)
== END 2024-12-06 04:24 | disposition home or self-care (01) ==
PROVIDERS: Emergency Provider Student in an Organized Health Care Education/Training Program; PCP Family Medicine
DX: R11.2 Nausea with vomiting, unspecified (principal); R82.90 Unspecified abnormal findings in urine; Z79.82 Long term (current) use of aspirin; K21.9 Gastro-esophageal reflux disease without esophagitis; J45.909 Unspecified asthma, uncomplicated; E78.5 Hyperlipidemia, unspecified; E03.9 Hypothyroidism, unspecified
CPT/HCPCS: 36415; 80053; 81001; 83735; 85025; 87086; 99283; A9270

== ENCOUNTER 2025-01-31 14:27 | Outpatient (CLI) | payer MEDICARE, SELFPAY ==
--- NOTE | ~2025-01-31 | DEXA_ITS ---
Bone Density Report Name: TRISHA POLLOCK Age: 74 Sex: Female Ethnicity: White Date of : 1950 Indication: postmenopausal; screening for osteoporosis; height loss; inflammatory bowel disease; asthma or emphysema; Referring Provider: MASSIEL BURNETT Study: Bone densitometry was performed. Exam Date: January 31, 2025 Accession number: [id number] Bone Density: Region BMD T-score Z-score Classification AP Spine(L1-L4) 0.902 -1.3 1.2 Osteopenia Femoral Neck (Left) 0.674 -1.6 0.6 Osteopenia Total Hip (Left) 0.887 -0.5 1.4 Normal Femoral Neck (Right) 0.648 -1.8 0.4 Osteopenia Total Hip (Right) 0.871 -0.6 1.3 Normal Total Hip Mean 0.879 -0.6 1.4 Normal World Health Organization criteria for BMD impression classify patients as: Normal (T-score at or above -1.0), Osteopenia (T-score between -1.0 and -2.5), or Osteoporosis (T-score at or below -2.5). 10-year Fracture Risk(1): Major Osteoporotic Fracture 13% Hip Fracture 3.1% Reported Risk Factors: [place] (), Neck BMD=0.648, BMI=25.9 (1) FRAX(R) Version 3.08. Fracture probability calculated for an untreated patient. Fracture probability may be lower if the patient has received treatment. Clinical Information Provided by Patient: Has used the following medications: Vitamin D Has the following medical conditions: Asthma or Emphysema, Inflammatory bowel diseases Patient maximum height was 64.0 Menopause Age: 57 No regular weight bearing exercise Does not regularly consume dairy products Drinks caffeinated beverages Onset of menses at age 11 Number of children 2 Impression: The patient has low bone mass, based on the Right Femoral Neck T-score. The patient has an estimated ten-year risk of hip fracture of 3.1% and an estimated ten-year risk of major fracture of 13%, based on the WHO FRAX algorithm. Discussion: BONE DENSITY IS LOW AT ONE OR MORE SKELETAL SITES. THE PATIENT'S BMD AND CLINICAL RISK FACTORS CONTRIBUTE TO THIS PATIENT'S INCREASED RISK OF FRACTURE. This patient's lowest T-score is low at one or more skeletal sites. It meets the World Health Organization's (WHO) criteria for “low bone mass” (T-score between -1.0 and -2.5). The patient's 10-year risk of hip fracture as calculated by FRAX exceeds the threshold where pharmacological therapy is recommended by the National Osteoporosis Foundation (NOF). However, all treatment decisions require clinical judgment and consideration of individual patient factors, including patient preferences, comorbidities, previous drug use, risk factors not captured in the FRAX model (e.g., frailty, falls, vitamin D deficiency, increased bone turnover, interval significant decline in bone density) and possible under or overestimation of fracture risk by FRAX. The patient should follow a healthful lifestyle (good nutrition with adequate calcium and vitamin D, and appropriate weight-bearing exercise). Follow-Up: Consider a repeat BMD and Vertebral Fracture Assessment (VFA) exam in 2 years or sooner if medically necessary, to reassess this patient's status. Reported by: FAIZA on 01/31/2025 3:00:00 PM. Reviewed, dictated and finalized at location A.
--- OUTSIDE RECORDS SUMMARY | 2025-01-31 14:30 | XMS_ITS | Clinical Summary ---
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
--- OUTSIDE RECORDS SUMMARY | 2025-01-31 14:30 | XMS_ITS | Clinical Summary ---
Author Organization [facility] Address [address] [address] Care Team Providers Care Low Altitude Air Defense Gunner Name Role Phone Brain Vitale MD Primary Care Provider [phone] [facility],non-owned Affiliates and Associated Physician Practices is amultiple site organization consisting of ambulatory clinics and hospital sitesin [place], [place], [place] and [place]. This disclosure is being madepursuant to the Care Everywhere program and may not contain all information available regarding this patient. Last updated 18.[facility] [place] Allergies Active Allergy Reactions Criticality Noted Date Comments Kiwi Extract 10/21/2016 Penicillins 10/21/2016 Red Dye 10/21/2016 Sulfa Drugs 10/21/2016 Citrullus Vulgaris 10/21/2016 Immunizations Immunization Administration Dates Next Due INFLUENZA VACCINE, HIGH-DOSE , QUADR. 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 Gender Identity Not on file Sexual Orientation Not on file Plan of Treatment Health Maintenance Due Date Last Done Comments BONE DENSITY TESTING 1950 HEPATITIS C SCREENING 03/06/1966 DTAP/TDAP/TD VACCINES (1 - Tdap) 1967 PNEUMOCOCCAL VACCINE 50+ (1 of 1 - PCV) 1998 ZOSTER VACCINE (1 of 2) 1998 Respiratory Syncytial Virus (RSV) Vaccine Pt: or over 60 yrs (1 - 1-dose 75+ series) 2023 COVID-19 VACCINE ( - 2023-2 5 season) 2024 DEPRESSION SCREENING 09/15/2024 INFLUENZA VACCINE (Season Ended) 2025 10/21/19 17 HEPATITIS B VACCINE Aged Out No longe [...] on patient's age to complete this topic Insurance MEDICARE MEDICARE Care Teams Low Altitude Air Defense Gunner Relationship Specialty Start Date End Date Brain Vitale MD [address] [place] [address] PCP - General Family Medicine 10/21/16
--- OUTSIDE RECORDS SUMMARY | 2025-01-31 14:30 | XMS_ITS | Clinical Summary ---
Author Organization [facility] no Address [address] [place] [address] Phone Care Team Providers Care Blueprint Processor Name Role Phone Provider, Alexandra External Primary [...] mouth daily. Active fluticasone (FLONASE) 50 mcg/spray [place], Suspension Administer 2 Sprays in each nostril daily. Active mometasone-form oterol (DULERA) 200-5 mcg/actuation inhaler Take 2 Puffs by inhalation 2 times daily. 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 Active atorvastatin (LIPITOR) 10 mg tablet Take [...] 2024 Insurance MEDICARE PART A AND B [facility] Care Teams Blueprint Processor Relationship Specialty Start Date End Date ProviderAlexandra PCP - General 04/25/14
--- OUTSIDE RECORDS SUMMARY | 2025-01-31 14:30 | XMS_ITS | Clinical Summary ---
Author Organization [facility] Address [address] [place] [address] Care Team Providers Care Service Advisor Name Role Phone Unavailable Primary Care Provider [...] Td Vaccines ( 1 - Tdap) 1967 Pneumococcal Vaccine: 50+ Ye ars (1 of 1 - PCV) 1998 Zoster Vaccines (1 of 2) 1998 Dexa Scan (General) 2013 RSV Immunization or 60+ Years (1 - 1-dose 75+ series) 2023 COVID-19 Vaccine (2023-2 5 season) 2024 Meningococcal B Vaccine Aged Out No l onger eligible based on patient's age to complete this topic Meningococcal Vaccine Aged Out No dimitris mauricio eligible based on patient's age to complete this topic RSV Immunizations Under 20 Months Aged Out No longer eligible based on patient's age to complete this topic
== END 2025-01-31 14:28 | disposition home or self-care (01) ==
LOC: ANHIMG 14:29
PROVIDERS: PCP Family Medicine; Visit Provider Family Medicine
DX: M85.89 Other specified disorders of bone density and structure, multiple sites (principal); Z78.0 Asymptomatic menopausal state; Z13.820 Encounter for screening for osteoporosis
CPT/HCPCS: 77080

== ENCOUNTER 2025-06-18 12:22 | Emergency (ER) | payer MEDICARE, SELFPAY ==
--- NOTE | 2025-06-18 12:25 | ED_ITS ---
HPI - Extremity Problem General Chief complaint: Extremity Injury, Lower Stated complaint: R HIP PAIN/LEG TINGLING Time Seen by Provider: 06/18/25 12:25 Source: patient Mode of arrival: ambulatory Limitations: no limitations History of Present Illness HPI Narrative: Eve is a 75-year-old female patient presenting to the clinic today with complaints of right hip pain/leg tingling for several weeks. She reports pain got worse on Friday of this past week. 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 Sitting aggravates her symptoms. She does not have any pain with walking/bearing weight. No recent injury to the hip. Denies any urinary symptoms. Denies any back pain. No saddle anesthesia or loss of bowel or bladder. Rates pain currently a /10. Has been taking ibuprofen and stretching Related Data Home Medications ?Medication ?Instructions ?Recorded ?Confirmed ?Last Taken ?Type aspirin 81 mg capsule 81 mg PO DAILY 11/25/2401/0711/25/24 History budesonide-formoterol HFA 160 2 puff inhalation Q12H 0 11/25/24 06/18/25 11/25/24 History mcg-4.5 mcg/actuation aerosol inhaler (Symbicort) Allergies Allergy/AdvReac Type Severity Reaction Status Date / Time kiwi Allergy Intermediate THROAT/MOUTH Verified 06/18/25 12:36 ITCHING & HIVES melon Allergy Intermediate THROAT/MOUTH Verified 06/18/25 12:36 ITCHING & HIVES red dye Allergy Intermediate Hives Verified 06/18/25 12:36 banana Allergy Mild Other Verified 06/18/25 12:36 Penicillins Allergy Mild Flushing Verified 06/18/25 12:36 Sulfa (Sulfonamide Allergy Mild flushing Verified 06/18/25 12:36 Antibiotics) Review of Systems Review of Systems: Pertinent positives per HPI. Patient denies any fever, chills, rash, headache, visual changes, dizziness, cough, runny nose, sore throat, shortness of breath, chest pain, palpitations, nausea, vomiting, diarrhea, constipation, abdominal pain, or any urinary issues. PMFSH Past Medical History Medical History Colon polyps GERD (gastroesophageal reflux disease) Vitamin D deficiency Allergic rhinitis Asthma HLD (hyperlipidemia) Acquired hypothyroidism Family History Family History Father Family history of coronary artery disease Asthma Family history of allergic disorder Family history of osteoarthritis Mother Family history of coronary artery disease Family history of malignant neoplasm Social History Social History Smoking status: Never smoker Second hand tobacco smoke exposure: No Alcohol intake: current Drinks per week: 0 Alcohol use details: one a month Substance use: never Substance use type: does not use Living arrangements: alone Occupation/Education: retired Gender identity (if verbalized by the patient): Female Sexual Orientation (if Verbalized by the Patient): Straight or Heterosexual Spiritual care concerns: No Comments At the time of my signature, I reviewed and agree with the nursing past medical, surgical, social, and family history. There is no relevant family history pertinent to the patient complaint. Exam Narrative: General: Well-developed, well nourished, in no apparent distress Head: Normocephalic, atraumatic. Cardio: Regular rate and rhythm, s1 and s2 normal, no murmur appreciated. Resp: Clear to auscultation bilaterally, no rhonchi, rales, wheezing or rubs. Musculoskeletal: No deformity, tender to palpation over the right SI joint and over the right lower gluteal/ischium, pain with numbness and tingling radiating down the posterior buttocks around to the top of the thigh and radiating down her leg, reports numbness and tingling in her toes, grossly normal range of motion, muscle strength strong and equal, peripheral pulse strong, no edema, no cyanosis, normal gait and station Course Course Emergency Course: Portions of this record may have been created with voice recognition software. Level of Care: Express Care Visit Vital Signs Vital signs: Vital Signs Temperature 36.6 C 06/18/25 12:32 Pulse Rate 83 06/18/25 12:32 Respiratory Rate 16 06/18/25 12:32 Blood Pressure 153/86 H 06/18/25 12:32 Pulse Oximetry 83 L 06/18/25 12:32 Temperature 36.6 C 06/18/25 12:32 Pulse Rate 83 06/18/25 12:32 Respiratory Rate 16 06/18/25 12:32 Blood Pressure 153/86 H 06/18/25 12:32 Pulse Oximetry 83 L 06/18/25 12:32 Vital signs reviewed MDM - Extremity (Nontraumatic) MDM Narrative Medical decision making narrative: At the time of visit patient is resting comfortably on the exam table. Patient appears to be nontoxic. Complaints of right hip pain/leg tingling for several weeks. She reports pain got worse on Friday of this past week. 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 Sitting aggravates her symptoms. She does not have any pain with walking/bearing weight. No recent injury to the hip. Denies any urinary symptoms. Denies any back pain. No saddle anesthesia or loss of bowel or bladder. Rates pain currently a 3/10. Has been taking ibuprofen and stretching. On exam patient has tenderness to palpation over the right SI joint and over the right lower gluteal/ischium, pain with numbness and tingling radiating down the posterior buttocks around to the top of the thigh and radiating down her leg, reports numbness and tingling in her toes, grossly normal range of motion, muscle strength strong and equal, peripheral pulse strong, no edema, no cyanosis, normal gait and station Plan: I suspect patient has SI joint dysfunction with right-sided sciatica pain. Prescription for Medrol Dosepak was sent to the pharmacy. Supportive measures were discussed with the patient and they voiced understanding discharge instructions and agrees to treatment plan. Return precautions reviewed Differential Diagnosis Differential diagnosis: Likely gout and other (Sciatica, SI joint dysfunction, back pain with radiculopathy) Discharge Plan Discharge Clinical Impression: Pain of right sacroiliac joint, Sciatica of right side Patient Disposition: Home Condition: Stable Instructions: Antibiotic Form, Sciatica (ED) Additional Instructions: Take any prescription medication only as prescribed-Medrol Dosepak Be mindful of sedation precautions given to you if taking a muscle relaxer. May use heat or ice to the affected area Consider massage or chiropractor adjustment if this was discussed with provider May use blue emu, lidocaine patches, or asper cream to affected area- do not apply heat or ice directly over cream- can cause burn. Complete appropriate sciatica stretching exercises. Follow up with your PCP in 3-5 days if symptom persist. Patient Language: Vietnamese Prescriptions: New methylprednisolone [Medrol (Ervin)] 4 mg tablets,dose pack See Rx Instructions PO .COMPLEX Qty: 21 0RF Rx Instructions: orally per package directions No Action atorvastatin 10 mg tablet 10 mg PO DAILY Qty: 90 3RF famotidine 40 mg tablet 40 mg PO DAILY Qty: 90 2RF montelukast [Singulair] 10 mg tablet 10 mg PO DAILY Qty: 90 1RF levothyroxine 50 mcg tablet 50 mcg PO DAILY Qty: 90 0RF budesonide-formoterol [Symbicort] 160-4.5 mcg/actuation HFA aerosol inhaler 2 puff INHALATION Q12H aspirin 81 mg capsule 81 mg PO DAILY Follow-up/Referrals: Brain Vitale MD [Primary Care Provider, [facility]] Time of Disposition: 12:40 Quality NIHSS Nursing Documentation ED NIHSS nursing documentation: reviewed/agree
[2025-06-18 12:32] VITALS: BP 153/86; PULSE 83; RESP 16; TEMP 36.6; O2SAT 83
== END 2025-06-18 12:48 | disposition home or self-care (01) ==
PROVIDERS: Emergency Provider Nurse Practitioner Family; PCP Family Medicine
DX: M53.3 Sacrococcygeal disorders, not elsewhere classified (principal); M54.31 Sciatica, right side; K21.9 Gastro-esophageal reflux disease without esophagitis; E03.9 Hypothyroidism, unspecified; E78.5 Hyperlipidemia, unspecified; J45.909 Unspecified asthma, uncomplicated; Z79.82 Long term (current) use of aspirin
CPT/HCPCS: 99213; G0463

== ENCOUNTER 2025-07-19 14:56 | Outpatient (CLI) | payer MEDICARE, SELFPAY ==
--- NOTE | ~2025-07-19 | US_ITS ---
EXAMINATION: US carotid duplex BI DATE: 07/19/2025 15:53 INDICATION: Carotid stenosis. Pulsatile tinnitus. TECHNIQUE: Grayscale, color Doppler, and pulsed Doppler images of the cervical carotid arteries were obtained. The degree of vessel stenosis is placed in one of the following categories: normal, <50%, 50-69%, >=70% but less than near- occlusion, near-occlusion, or total occlusion. Note that percent stenosis relative to normal distal artery lumen diameter is indirectly measured from velocity measurements as described by Alan, et al. Radiology 2003; 229:340-346. Notes: Normal: Peak systolic velocity <125 centimeters/sec and no plaque <50%. Peak systolic velocity <125 (EDV <40; ICA/CCA PSV ratio <2.0; used these factors only a tandem lesions or low cardiac output or contralateral disease) 50-69 %: PSV 125-230 (EDV 40-100; ratio 2-4) >= 70% but less than near occlusion: PSV greater than 230 (EDV > 100; ratio> 4.0) Near Occlusion: PSV that is variable; markedly narrowed lumen Occlusion: Absent flow on color/spectral Doppler and no lumen on steinberg scale. COMPARISON: None. FINDINGS: RIGHT: The right common carotid artery (CCA) peak systolic velocity (PSV) is 100 cm/s. The right internal carotid artery (ICA) PSV is 98 cm/s. The right ICA end- diastolic velocity (EDV) is 27 cm/s. The right ICA/CCA PSV ratio is 1.0. The external carotid artery (ECA) PSV is 106 cm/s. There is antegrade flow in the right vertebral artery. LEFT: The left CCA PSV is 91 cm/s. The left ICA PSV is 113 cm/s. The left ICA EDV is 33 cm/s. The left ICA/CCA PSV ratio is 1.2. The ECA PSV is 78 cm/s. There is antegrade flow in the left vertebral artery. IMPRESSION: 1. Less than 50% stenosis in the right internal carotid artery by sonographic criteria. 2. Less than 50% stenosis in the left internal carotid artery by sonographic criteria. Reviewed, dictated and finalized at location O. CTION MEDICINE PHYSICIAN IMPRESSION: 1. Less than 50% stenosis in the right internal carotid artery by sonographic bela tran. 2. Less than 50% stenosis in the left internal carotid artery by sonographic samy cotter.
--- NOTE | ~2025-07-19 | XR_ITS ---
XR lumbar spine 2-3V Indication: M54.50 - Low back pain, unspecified Comparison: None Findings: The vertebral heights are intact. No fracture or subluxation. The disc heights are intact. Soft tissues unremarkable Impression: No acute abnormality. Reviewed, dictated and finalized at location P. AND LINK KNITTING MACHINE OPERATOR Impression: No acute abnormality.
--- OUTSIDE RECORDS SUMMARY | 2025-07-19 16:27 | XMS_ITS | Clinical Summary ---
Author Organization [facility] n Address [address] [place] [address] Phone Care Team Providers Care Cnmt Name Role Phone Unavailable Primary Care Provider Unavailabl e Allergies Active Allergy Reactions Criticality Noted Date Comments Penicillins Anaphylaxis High 05/01/2015 Red Dye Anaphylaxis High 05/01/2015 Sulfa (Sulfonamide Antibiotics) Anaphylaxis High Medications albuterol sulfate 90 mcg inhaler Take 2 Puffs by inhalation every 4 hours as needed for Shortness of Breath. 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 Active atorvastatin (LIPITOR) 10 mg tablet Take 10 mg by mouth Daily LATE. Active aspirin (ECOTRIN EC) 81 mg Tablet, Delayed Release (E.C.) Take 81 mg by mouth daily. Active ondansetron (ZOFRAN ODT) 4 mg Tablet, Rapid Dissolve Place 1 Tab (4 mg) under tongue every 8 hours as needed for Nausea/Emesis. 10 Tab 0 5 Active Social History Tobacco Use Types Packs/Day Years Used Date Smoking Tobacco: Never Alcohol Use Standard Drinks/Week Comments Yes 0 (1 standard drink = 0.6 oz pur e alcohol) Comments No Sex and Gender Information Value Date Recorded Sex Assigned at Not on file Legal Sex Female 5:03 AM CDT Gender Identity Not on file Sexual Orientation Not on file Last Filed Vital Signs Vital Sign Reading Time Taken Comments Blood Pressure 152/81 04/27/2016 1:31 AM CDT Pulse - - Temperature 36.7 C (98 F) 04/27/2016 1:40 AM CDT Respiratory Rate 18 04/27/2016 1:31 AM CDT Oxygen Saturation 99% 04/27/2016 1:31 AM CDT Inhaled Oxygen Concentration - - Weight 63.5 kg (140 lb) 04/26/2016 5:51 PM CDT Height 160 cm (5' 3) 04/26/2016 5:51 PM CDT Body Mass Index 24.8 04/26/2016 5:51 PM CDT Plan of Treatment Health Maintenance Due Date Last Done Comments DTAP/TDAP/TD VACCINES (1 - Tdap) 1967 PNEUMOCOCCAL VACCINE 50+ YEARS (1 of 1 - PCV) 03/10/19 98 ZOSTER VACCINE (1 of 2) 1998 OSTEOPOROSIS SCREENING 2013 RSV VACCINE (60+ or ) (1 - 1-dose 75+ series) 2023 INFLUENZA VACCINE (#1) 2025 Insurance MEDICARE PART A AND B [facility] MEDICARE PART A AND B [facility]
--- OUTSIDE RECORDS SUMMARY | 2025-07-19 16:27 | XMS_ITS | Clinical Summary ---
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
--- OUTSIDE RECORDS SUMMARY | 2025-07-19 16:27 | XMS_ITS | Clinical Summary ---
Author Organization [facility] Address [address] [place] [id number] Care Team Providers Care Dredge Deckhand Name Role Phone Unavailable Primary Care Provider [...] 75+ series) 2023 COVID-19 Vaccine ( - 2024-2 6 season) 2025 Influenza Adult (#1) 2025 Hepatitis A Vaccines Aged Out No long er eligible based on patient's age to complete this topic Meningococcal B Vaccine Aged Out No l onger eligible based on patient's age to complete this topic Meningococcal Vaccine Aged Out No dimitris mauricio eligible based on patient's age to complete this topic RSV Immunizations Under 20 Months Aged Out No longer eligible based on patient's age to complete this topic
--- OUTSIDE RECORDS SUMMARY | 2025-07-19 16:27 | XMS_ITS | Clinical Summary ---
Author Organization [facility] no Address [address] [place] [address] Phone Care Team Providers Care Deputy Sheriff Court Services Name Role Phone Provider, Alexandra External Primary [...] mouth daily. Active fluticasone (FLONASE) 50 mcg/spray Blain, Suspension Administer 2 Sprays in each nostril daily. Active mometasone-form oterol (DULERA) 200-5 mcg/actuation inhaler Take 2 Puffs by inhalation 2 times daily. 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 Active atorvastatin (LIPITOR) 10 mg tablet Take [...] 5:12 PM CDT Height 161.3 cm (5' 3.5) 04/25/2014 5:12 PM CDT Body Mass Index [...] 2025 Insurance MEDICARE PART A AND B [facility] Care Teams Deputy Sheriff [address] Services Relationship Specialty Start Date End Date ProviderAlexandra PCP - General 04/25/14
--- OUTSIDE RECORDS SUMMARY | 2025-07-19 16:27 | XMS_ITS | Clinical Summary ---
Author Organization [facility] Address [address] [place] [address] Care Team Providers Care Store Hand Name Role Phone Brain Vitale MD Primary Care Provider [phone] Source Comments [facility],non-owned Affiliates and Associated Physician Practices is amultiple site organization consisting of ambulatory clinics and hospital sitesin [place], [place], [place] and [place]. This disclosure is being madepursuant to the Care Everywhere program and may not contain all information available regarding this patient. 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
== END 2025-07-19 14:57 | disposition home or self-care (01) ==
LOC: ANHIMG 15:00
PROVIDERS: PCP Family Medicine; Visit Provider Physician Assistant
DX: I65.23 Occlusion and stenosis of bilateral carotid arteries (principal); M54.50 Low back pain, unspecified; R09.89 Other specified symptoms and signs involving the circulatory and respiratory systems; H93.A9 Pulsatile tinnitus, unspecified ear
CPT/HCPCS: 72100; 93880

== ENCOUNTER 2025-07-31 15:15 | Emergency (ER) | payer MEDICARE, SELFPAY ==
--- NOTE | 2025-07-31 15:18 | ED_ITS ---
HPI - URI/Sore Throat General Chief Complaint: Upper Respiratory Infection Stated Complaint: Cough/Congestion/Sore Throat Time Seen by Provider: 07/31/25 15:17 Source: patient Mode of arrival: ambulatory Limitations: no limitations History of Present Illness HPI Narrative: Eve is a 75 year old female patient presenting to the clinic today with c/o cough, congestion, and sore throat x 1 week. She reports no fever,chills, or body aches. Coughing up clear phlegm. History of COPD/asthma. Does use albuterol inhaler and Symbicort daily. Does feel some increased shortness of breath. Related Data Home Medications ?Medication ?Instructions ?Recorded ?Confirmed ?Last Taken ?Type aspirin 81 mg capsule 81 mg PO DAILY 11/25/2407/1611/25/24 History budesonide-formoterol HFA 160 2 puff inhalation Q12H 0 11/25/24 07/28/25 11/25/24 History mcg-4.5 mcg/actuation aerosol inhaler (Symbicort) Allergies Allergy/AdvReac Type Severity Reaction Status Date / Time kiwi Allergy Intermediate THROAT/MOUTH Verified 07/28/25 11:33 ITCHING & HIVES melon Allergy Intermediate THROAT/MOUTH Verified 07/28/25 11:33 ITCHING & HIVES red dye Allergy Intermediate Hives Verified 07/28/25 11:33 banana Allergy Mild Other Verified 07/28/25 11:33 Penicillins Allergy Mild Flushing Verified 07/28/25 11:33 Sulfa (Sulfonamide Allergy Mild flushing Verified 07/28/25 11:33 Antibiotics) Review of Systems Review of Systems: Pertinent positives per HPI. Patient denies any fever, chills, rash, headache, visual changes, dizziness, chest pain, palpitations, nausea, vomiting, diarrhea, constipation, abdominal pain, or any urinary issues. [facility] Past Medical History Medical History Abnormal auditory perception of right ear Hearing loss Colon polyps GERD (gastroesophageal reflux disease) Vitamin D deficiency Allergic rhinitis Asthma HLD (hyperlipidemia) Acquired hypothyroidism Family History Family History Father Family history of coronary artery disease Asthma Family history of allergic disorder Family history of osteoarthritis Mother Family history of coronary artery disease Family history of malignant neoplasm Social History Social History Smoking status: Never smoker Second hand tobacco smoke exposure: No Alcohol intake: current Drinks per week: 0 Alcohol use details: one a month Substance use: never Substance use type: does not use Living arrangements: alone Occupation/Education: retired Gender identity (if verbalized by the patient): Female Sexual Orientation (if Verbalized by the Patient): Straight or Heterosexual Spiritual care concerns: No Comments At the time of my signature, I reviewed and agree with the nursing past medical, surgical, social, and family history. There is no relevant family history pertinent to the patient complaint. Exam Narrative: General: Well-developed, well nourished, in no apparent distress Head: Normocephalic, atraumatic Eyes: Pupils equally round and reactive to light bilaterally, EOM intact, sclera and conjunctive clear, no discharge, lids normal Ears: TMs intact and clear, ear canals clear, no drainage, grossly hearing normal. Nose: Nares patent, clear nasal discharge, mild inflammation, no sinus tender ness. Mouth: Oral pharynx beefy red rash to the tongue with white plaque lesions without lesions or masses, good dentition, MMM. Neck: Supple, trachea midline, no enlargement of anterior or posterior cervical nodes, no thyroid masses or goiter palpable. Cardio: Regular rate and rhythm, s1 and s2 normal, no murmur appreciated. Resp: Course in the right lower base, no rhonchi, rales, wheezing or rubs Course Course Emergency Course: Portions of this record may have been created with voice recognition software. Level of Care: Express Care Visit Vital Signs Vital signs: Vital Signs Temperature 36.6 C 07/31/25 15:32 Pulse Rate 84 07/31/25 15:32 Respiratory Rate 16 07/31/25 15:32 Blood Pressure 138/67 07/31/25 15:32 Pulse Oximetry 99 07/31/25 15:32 Oxygen Delivery Room Air 07/31/25 15:32 Temperature 36.6 C 07/31/25 15:32 Pulse Rate 84 07/31/25 15:32 Respiratory Rate 16 07/31/25 15:32 Blood Pressure 138/67 07/31/25 15:32 Pulse Oximetry 99 07/31/25 15:32 Oxygen Delivery Room Air 07/31/25 15:32 Vital signs reviewed MDM - URI/Sore Throat MDM Narrative Medical decision making narrative: At the time of visit patient is resting comfortably on the exam table. Patient appears to be nontoxic. C/o cough, congestion, and sore throat x 1 week. She reports no fever,chills, or body aches. Coughing up clear phlegm. History of COPD/asthma. Does use albuterol inhaler and Symbicort daily. Does feel some increased shortness of breath. On exam patient has bilateral TMs intact and clear, clear nasal drainage, nares patent, mild anterior turbinate inflammation, oral pharynx shows red beefy appearing tongue with white plaque-like lesion- likely candidal, heart rates regular rate and rhythm, coarse lung sounds in the right lower base Plan: I suspect patient has bronchitis/oral thrush. Prescription for prednisone and oral nystatin swish and swallow was sent to the pharmacy. Supportive measures were discussed with the patient and they voiced understanding discharge instructions and agrees to treatment plan. Return precautions reviewed Differential Diagnosis Differential diagnosis: Likely upper respiratory infection, otitis media, sinusitis, viral infection, bronchitis, influenza, pharyngitis and other Discharge Plan Discharge Clinical Impression: Bronchitis, Oral thrush Patient Disposition: Home Condition: Stable Instructions: Antibiotic Form, Oral Candidiasis (ED), Acute Bronchitis (ED) Additional Instructions: Take prescription medications only as prescribed-nystatin swish and swallow and prednisone Make sure to rinse her mouth out well after using your inhalers. Increase fluids and stay well hydrated May take Tylenol or motrin as directed on bottle for pain/fever May use Flonase 1 spray in each nare daily May take OTC antihistamines such as Zyrtec or Claritin daily as directed on bottle May apply Vicks vapor rub to chest to open sinuses Sinus rinses for congestion Cepacol spray, cough drops, throat lozenges, warm tea with honey/lemon, gargle salt water to soothe throat BRAT diet for diarrhea Clear liquids x 24 hours then advance as tolerated for nausea/vomiting Go to the ED if you develop a worsening in your condition- high fever not controlled by Tylenol or Motrin, dehydration, weakness, lethargy, shortness of breath, or chest pain. Follow up with your PCP in 3-5 days if symptoms persist. Patient Language: Portuguese Prescriptions: New prednisone 20 mg tablet 40 mg PO DAILY 5 Days Qty: 10 0RF nystatin 100,000 unit/mL suspension 1 ml PO QID 10 Days Qty: 40 0RF Rx Instructions: swish and swallow No Action famotidine 40 mg tablet 40 mg PO DAILY Qty: 90 2RF montelukast [Singulair] 10 mg tablet 10 mg PO DAILY Qty: 90 1RF levothyroxine 50 mcg tablet 50 mcg PO DAILY Qty: 90 0RF atorvastatin 10 mg tablet 10 mg PO DAILY Qty: 90 3RF budesonide-formoterol [Symbicort] 160-4.5 mcg/actuation HFA aerosol inhaler 2 puff INHALATION Q12H aspirin 81 mg capsule 81 mg PO DAILY Follow-up/Referrals: Brain Vitale MD [Primary Care Provider, Family Practice] Time of Disposition: 15:44 Quality NIHSS Nursing Documentation ED NIHSS nursing documentation: reviewed/agree
[2025-07-31 15:32] VITALS: BP 138/67; PULSE 84; RESP 16; TEMP 36.6; O2SAT 99
== END 2025-07-31 15:57 | disposition home or self-care (01) ==
PROVIDERS: Emergency Provider Nurse Practitioner Family; PCP Family Medicine
DX: J40 Bronchitis, not specified as acute or chronic (principal); B37.0 Candidal stomatitis; E78.5 Hyperlipidemia, unspecified; E03.9 Hypothyroidism, unspecified; J45.909 Unspecified asthma, uncomplicated; K21.9 Gastro-esophageal reflux disease without esophagitis; Z79.82 Long term (current) use of aspirin
CPT/HCPCS: 99213; G0463

== ENCOUNTER 2025-08-04 09:21 | Outpatient (CLI) | payer MEDICARE, SELFPAY ==
--- NOTE | ~2025-08-04 | XR_ITS ---
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 Technique: 2 views obtained. Findings: The lungs are clear, no effusion. No pneumothorax. Heart is normal size. Mediastinal and hilar contours are within normal limits. Bony thorax no acute abnormality. Impression: No acute cardiopulmonary abnormality. Reviewed, dictated and finalized at location P. OFFICER Impression: No acute cardiopulmonary abnormality.
== END 2025-08-04 09:22 | disposition home or self-care (01) ==
PROVIDERS: PCP Family Medicine; Visit Provider Allergy & Immunology
DX: R05.9 Cough, unspecified (principal)
CPT/HCPCS: 71046